=== PATIENT | female | born 1980 ===

== ENCOUNTER 2020-12-07 08:08 | Outpatient (CLI) | payer OTHER ==
[~2020-12-07 08:08] MED LIST: PRENATAL TABLE1 EAC2 PO
== END 2020-12-07 08:34 | disposition home or self-care (01) ==
LOC: MAMO-SONO 08:08
PROVIDERS: ATTEND Internal Medicine
DX: N64.59 Other signs and symptoms in breast (principal); Z12.31 Encounter for screening mammogram for malignant neoplasm of breast; E03.8 Other specified hypothyroidism; E78.89 Other lipoprotein metabolism disorders; G62.89 Other specified polyneuropathies; E55.9 Vitamin D deficiency, unspecified; K80.12 Calculus of gallbladder with acute and chronic cholecystitis without obstruction